=== PATIENT | male | born 1950 | race Caucasian/White ===

== ENCOUNTER → 2016-12-10 | Outpatient (CLI) | payer MEDICARE, BC ==
[~2016-12-10] MED LIST: ACTEMRA IV; ACTOS30 MG PO; ANDRODERM1 EAC1 TRANS; ANDROGEL 1% TOP; CIALIS5 MG PO; COLACE100 MG PO; DILAUDID 2MG(HYD2 MG PO; FISH OIL PO; FISH OIL300 MG PO; FOLIC ACID1 MG PO; INDOCIN SR75 MG PO; JANUVIA 100 MG100 MG PO; LEVOTHROID (S150 MCG PO; LYRICA 100MG C100 MG PO; LYRICA100 MG PO; LYRICA300 MG PO; METHOTREXATE25 MG/ML IV/SUB-Q; NORCO 5-325 MG1 TAB PO; PRINIVIL OR ZES10 MG PO; REFRESH PLUS1 EACH OPHTH; RESTASIS 0.05%1 VIAL OPHTH; SOMA350 MG PO; SYSTANE 0.3-0.440 ML OPHTH; TYLENOL EXTRA500 MG PO; VALIUM5 MG PO; VICODIN 5-3001 EACH PO; VITAMIN D-32000 UNI1 PO; VITAMIN D33000 UNIT PO; WELCHOL625 MG PO; XARELTO10 MG PO
== END | disposition disaster alternative care site (69) ==
LOC: GRAD 12:50
DX: R80.9 Proteinuria, unspecified (principal)

== ENCOUNTER → 2016-12-10 | Outpatient (CLI) | payer MEDICARE, BC | END | disposition disaster alternative care site (69) | LOC: LGSMG 12:22 | DX: R80.9 Proteinuria, unspecified (principal) ==

== ENCOUNTER → 2016-12-18 | Outpatient (CLI) | payer MEDICARE, BC | END | disposition disaster alternative care site (69) | LOC: LGSMG 13:05 | DX: R80.9 Proteinuria, unspecified (principal) ==